=== PATIENT | female | born 1975 | race Caucasian/White ===

== ENCOUNTER 2020-09-21 09:50 | Emergency (ER) | payer SELFPAY ==
[~2020-09-21] VITALS: Ht 170.2 cm; Wt 80.9 kg
[2020-09-21 09:59] VITALS: BP 137/90; Ht 170.2 cm; Wt 80.9 kg
[2020-09-21] MEDS ORDERED: BUPROPION XL300 MG PO (10:05)
[2020-09-21] MEDS ORDERED: ESTRACE1 MG PO (10:05)
[2020-09-21 12:22] LABS: BASOPHILS 0.5 % (0-2); EOSINOPHILS 1.5 % (0-7); HEMATOCRIT 36.5 % (36.0-48.0); HEMOGLOBIN 12.5 g/dL (12-16); LYMPHOCYTES 27.6 % (15-50); MCH 29.8 pg (26.0-34.0); MCHC 34.2 g/dL (31.0-37.0); MCV 87.3 fL (80.0-100.0); MEAN PLATELET VOLUME 8.1 fL (7.4-10.4); MONOCYTES 6.5 % (2-11); NEUTROPHILS 63.9 % (40-80); PLATELET COUNT 198 10x3/uL (130-400); RBC 4.18 10x6/uL (4.00-5.40); RDW 12.5 % (11.5-14.5); WBC 5.6 10x3/uL (4.8-10.8)
[2020-09-21 12:23] LABS: ANION GAP 10.3 mmol/L (8-16); CALCIUM 8.7 mg/dL (8.5-10.1); CARBON DIOXIDE 28.5 mmol/L (21.0-32.0); CREATININE - SERUM 0.9 mg/dL (0.6-1.3); POTASSIUM - SERUM 3.8 mmol/L (3.5-5.1)
[2020-09-21 12:30] LABS: ALBUMIN 3.7 g/dL (3.4-5.0); BILIRUBIN - TOTAL 0.53 mg/dL (0.2-1.3); PROTEIN - SERUM 7.3 g/dL (6.4-8.2)
[2020-09-21] MEDS ORDERED: CLEOCIN HCL300 MG PO (15:41)
[2020-09-21] MEDS ORDERED: CEPHALEXIN500 M1 PO (15:41)
[2020-09-21] MEDS ORDERED: HYDROCODON-ACE1 EAC7 PO (15:41)
== END 2020-09-21 17:17 | disposition home or self-care (01) ==
LOC: D.ER 09:50
PROVIDERS: Emergency Medicine
DX: T81.49XA Infection following a procedure, other surgical site, initial encounter (principal); L03.311 Cellulitis of abdominal wall